=== PATIENT | male | born 1995 | race Caucasian/White ===

== ENCOUNTER 2021-02-03 01:45 | Emergency (ER) | payer SELFPAY ==
[2021-02-03] MEDS ORDERED: Ondansetron 4 MG/2 ML SDV ONE (01:52)
[2021-02-03] MEDS ORDERED: fentaNYL 100 MCG/2 ML SDV ONE (01:52)
[2021-02-03] MEDS ORDERED: methylPREDNISolone Sodium Succinate 125 MG/2 ML SDV ONE (01:53)
[2021-02-03] MEDS ORDERED: diphenhydrAMINE 50 MG/ML SDV ONE (01:53)
[2021-02-03] MEDS ORDERED: Ondansetron 4 MG/2 ML SDV IVPUSH ONE (01:54)
[2021-02-03] MEDS ORDERED: diphenhydrAMINE 50 MG/ML SDV IVPUSH ONE (01:54)
[2021-02-03] MEDS ORDERED: fentaNYL 50 MCG/ML SDV IVPUSH ONE ×2 (01:54→03:14)
[2021-02-03] MEDS ORDERED: methylPREDNISolone Sodium Succinate 125 MG/2 ML SDV IVPUSH ONE (01:55)
[2021-02-03] MEDS ORDERED: Sodium Chloride 0.9% 1,000 ML IV ONE (02:00)
[2021-02-03] MEDS ORDERED: Sodium Chloride 0.9% 10 ML Syringe FLUSH PRN (02:00)
[2021-02-03] MEDS ORDERED: Sodium Chloride 0.9% 2.5 ML Syringe FLUSH PRN (02:00)
[2021-02-03] MEDS ORDERED: Iopamidol 755 MG/ML 500 ML Multipack Bottle IVPUSH STA (02:21)
[2021-02-03 02:24] LABS: BLOOD UREA NITROGEN,BUN 7 mg/dL (7.0-18.0); CARBON DIOXIDE,CO2 26.6 mmol/L (21.0-32.0); CHLORIDE,CL 100 mmol/L (98-107); GLUCOSE RANDOM 107 mg/dL (74-106); LIPASE 99 U/L (73-393); POTASSIUM,K 3.8 mmol/L (3.5-5.1); SODIUM,NA 137 mmol/L (136-148)
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
[2021-02-03] MEDS ORDERED: Ketorolac 15 MG/ML SDV IVPUSH STA (03:14)
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
--- NOTE | 2021-02-03 03:43 | CR ---
INDICATION: Trauma, hand pain TECHNIQUE: Hand radiograph 3 views right COMPARISON: None FINDINGS: Evaluation of the digits on the lateral examination is moderately degraded due to overlapped digit positioning. Bone: No acute fractures or aggressive bone lesions are identified. There is a bone island present in the distal aspect of the 4th middle phalanx measuring 7 mm. Joint: The carpal and metacarpal-phalangeal joints are unremarkable in appearance. The interphalangeal joints are normal in appearance. Soft tissue: Unremarkable. No radiopaque foreign bodies are seen. IMPRESSION: 1. No acute osseous injuries or abnormalities are noted. Dictated by Jeovany Tijerina MD @ 02/03/2021 3:41:26 AM Dictated by: Jeovany Tijerina MD @ 02/03/2021 03:41:33 (Electronically Signed)
== END 2021-02-03 05:17 ==
LOC: MW.ED 01:45
DX: S22.079A Unspecified fracture of T9-T10 vertebra, initial encounter for closed fracture (principal); S22.089A Unspecified fracture of T11-T12 vertebra, initial encounter for closed fracture; Z91.041 Radiographic dye allergy status; Z20.822 Contact with and (suspected) exposure to COVID-19; V86.99XA Unspecified occupant of other special all-terrain or other off-road motor vehicle injured in nontraffic accident, initial encounter
CPT/HCPCS: 36415; 70450; 71260; 72125; 73130; 74177; 80053; 80305; 80307; 81003; 83690; 84484; 85025; 85610; 86900; 86901; 87635; 96374; 96375; 96376; 99285; J1200; J1885; J2405; J2930; J3010; J7030; Q9967; 72128-26; 72131-26; 99291; U0002

== ENCOUNTER 2022-10-06 17:58 | Emergency (ER) | payer BC ==
[2022-10-06] MEDS ORDERED: Fluorescein 1 MG Ophth Strip EYEBOTH ONE (18:20)
[2022-10-06] MEDS ORDERED: Ibuprofen 600 MG Tab PO ONE (18:20)
[2022-10-06] MEDS ORDERED: fentaNYL 50 MCG/ML SDV IM ONE (18:20)
[2022-10-06] MEDS ORDERED: Ondansetron 4 MG Tab.DIS PO ONE (18:20)
[2022-10-06] MEDS ORDERED: Bacitracin Oint 1 GM U/D Packet TOP ONE (18:21)
[2022-10-06] MEDS ORDERED: Diphtheria,Pertussis(Acell),Tetanus Vaccine 0.5 ML Syringe IM ONE (18:21)
[2022-10-06] MEDS ORDERED: Acetaminophen/oxyCODONE 325-5 MG Tab PO ONE (18:49)
== END 2022-10-06 19:30 | disposition home or self-care (01) ==
LOC: MW.ED 17:58
DX: T20.20XA Burn of second degree of head, face, and neck, unspecified site, initial encounter (principal); T22.212A Burn of second degree of left forearm, initial encounter; T23.202A Burn of second degree of left hand, unspecified site, initial encounter; T23.272A Burn of second degree of left wrist, initial encounter; Z90.49 Acquired absence of other specified parts of digestive tract; Z91.041 Radiographic dye allergy status; Z23 Encounter for immunization
CPT/HCPCS: 16020; 90471; 90715; 96372; 99283; A9270; J3010

== ENCOUNTER 2024-09-09 08:07 | Emergency (ER) | payer BC ==
[2024-09-09] MEDS: Ketorolac 30 MG/ML SDV IM ONE (08:38)
[2024-09-09] MEDS: Acetaminophen 325 MG Tab PO ONE (08:40)
[2024-09-09] MEDS: Lidocaine 4% 1 each Patch TOP ONE (08:40)
== END 2024-09-09 09:32 | disposition home or self-care (01) ==
LOC: MW.ED 08:07
DX: M54.50 Low back pain, unspecified (principal); Z91.041 Radiographic dye allergy status; Z90.49 Acquired absence of other specified parts of digestive tract; Z75.8 Other problems related to medical facilities and other health care
CPT/HCPCS: 96372; 99283; A9270; J1885; 99282